=== PATIENT | male | born 1945 | race Caucasian/White ===

== ENCOUNTER 2017-01-08 08:41 | Day surgery (SDC) | payer MEDICARE, MEDICAID ==
[~2017-01-08] VITALS: Ht 167.6 cm; Wt 80.9 kg
[~2017-01-08 08:41] MED LIST: AMLO2.5T2 PO; ASPI-515 PO; FURO80TA3 PO; LISI-167 PO; LISI5TAB7 PO; METO25TA91 PO; POTA10TA11 PO
[2017-01-08 09:13] VITALS: BP 108/62
[2017-01-08] MEDS ORDERED: MACI10TA PO (09:26)
[2017-01-08] MEDS ORDERED: METF500T4 PO (09:26)
[2017-01-08] MEDS ORDERED: ALBU18HF INH (09:26)
[2017-01-08] MEDS ORDERED: METO25TA2 PO (09:26)
[2017-01-08] MEDS ORDERED: TIOT18CA INH (09:26)
[2017-01-08] MEDS ORDERED: DIPHENHYDRAMINE 50 MG/ML, 1ML IVPush ONE (09:30)
[2017-01-08] MEDS ORDERED: MIDAZOLAM 1 MG/ML, 5ML ONE (10:30)
[2017-01-08] MEDS ORDERED: LIDOCAINE 2%, 20ML ONE (10:30)
[2017-01-08] MEDS ORDERED: FENTANYL PF 100 MCG/2ML ONE (10:30)
[2017-01-08] MEDS ORDERED: DIPHENHYDRAMINE 50 MG/ML, 1ML ONE (10:54)
== END 2017-01-08 13:15 ==
LOC: CACL 08:41
PROVIDERS: ATTEND Internal Medicine Cardiovascular Disease
DX: I27.0 Primary pulmonary hypertension (principal); I36.1 Nonrheumatic tricuspid (valve) insufficiency; I10 Essential (primary) hypertension; Z79.82 Long term (current) use of aspirin
CPT/HCPCS: 93451; 99156; C1769; C1894; J1200; J2250; J3010; J3490